=== PATIENT | female | born 2000 | race Caucasian/White ===

== ENCOUNTER → 2023-10-08 09:06 | Outpatient (REF) | payer OTHER, SELFPAY ==
[2023-10-08 10:28] LABS: FSH < 0.7 mIU/ml; Luteinizing Hormone 0.31 mIU/ml; Prolactin 26.9 ng/ml (3.0-18.6)
[2023-10-08 10:41] LABS: TSH Reflex To Free T4 0.16 uIU/ml (0.47-4.68)
[2023-10-08 10:43] LABS: Estradiol 22.1 pg/ml
[2023-10-08 11:09] LABS: Free T4 1.05 ng/dl (0.78-2.19)
[2023-10-09 18:11] LABS: DHEA Sulfate 401 ug/dL (148-407)
[2023-10-12 21:06] LABS: Free Testosterone 3.1 pg/mL (0.8-7.4); Sex Hormone Binding Globulin 50 nmol/L (25-122); Total Testosterone,Female/Chil 24 ng/dL (9-55)
== END ==
LOC: REG 09:06
PROVIDERS: ATTENDING PHYSICIAN Nurse Practitioner Family; FAMILY PHYSICIAN Family Medicine
DX: N93.8 Other specified abnormal uterine and vaginal bleeding (principal); N91.1 Secondary amenorrhea
CPT/HCPCS: 36415; 82627; 82670; 83001; 83002; 84146; 84270; 84402; 84403; 84439; 84443

== ENCOUNTER → 2023-10-14 08:25 | Outpatient (REF) | payer OTHER, SELFPAY ==
[2023-10-14 20:02] LABS: Prolactin 28.3 ng/ml (3.0-18.6)
== END ==
LOC: REG 08:25
PROVIDERS: ATTENDING PHYSICIAN Obstetrics & Gynecology; REFERRING PHYSICIAN Internal Medicine Endocrinology, Diabetes & Metabolism
DX: N91.1 Secondary amenorrhea (principal)
CPT/HCPCS: 36415; 84146